=== PATIENT | female | born 1995 | race Hispanic/Latino ===

== ENCOUNTER 2023-08-13 12:37 | Emergency (ER) | payer SELFPAY ==
[2023-08-13] MEDS ORDERED: FAMOTIDINE 20 MG/2 ML VIAL IV ONE (12:58)
[2023-08-13] MEDS ORDERED: NA CHLORIDE 0.9% 1,000 ML ONE (12:58)
[2023-08-13] MEDS ORDERED: ONDANSETRON 4 MG/2 ML VIAL ONE (12:58)
[2023-08-13 13:05] LABS: Specific Gravity 1.008 (1.005-1.030)
[2023-08-13 13:06] LABS: Specific Gravity 1.008 (1.005-1.030); Urine Bilirubin NEGATIVE (Negative); Urine Blood Negative (Negative); Urine Clarity Clear (Clear); Urine Color Colorless (Yellow); Urine Glucose NEGATIVE (Negative); Urine Ketones NEGATIVE (Negative); Urine Microscopic Reflex YN NO UMIC; Urine Nitrite NEGATIVE (Negative); Urine Protein NEGATIVE (Negative); Urine Urobilinogen Normal (Normal); Urine pH 7.5 (5.0-7.0)
[2023-08-13 13:09] LABS: Absolute Eosinophils 0.1 K/uL (0-0.5); Absolute Lymphocytes (CBC) 2.3 K/uL (0.7-4.9); Absolute Monocytes 0.5 K/uL (0.1-1.3); Absolute Neutrophil 4.9 K/uL (1.8-8.0); Basophils % 0.4 % (0-1.3); Eosinophils % 1.2 % (0-4.4); Hematocrit 40.7 % (36.0-45.0); Hemoglobin 13.4 g/dL (12.0-15.0); Lymphocytes % 29.4 % (15.3-44.8); MCH 27.9 pg (27.0-35.0); MCV 84.7 fL (80-100); MPV 9.8 fL (7.6-11.3); Monocytes % 6.6 % (3.3-12.3); Neutrophils % 62.4 % (41.7-73.7); Platelets 274 thou/uL (152-406); RBC Red Blood Cell Count 4.81 M/uL (3.86-4.86); Red Cell Distribution Width 13.2 % (12.1-15.2)
[2023-08-13 13:18] LABS: Anion Gap 7.7 mEq/L (5.0-15.0); Bilirubin Total 0.6 mg/dL (0.2-1.0); Potassium 3.7 mEq/L (3.5-5.1)
[2023-08-13] MEDS ORDERED: MORPHINE 4 MG/ML SYR ONE (13:43)
--- NOTE | 2023-08-13 14:52 | RAD REPORT ---
EXAM DESCRIPTION: CT - Abdomen Pelvis W Contrast - 08/13/2023 2:22 pm CLINICAL HISTORY: ABD PAIN COMPARISON: No comparisons TECHNIQUE: Thin cut axial CT imaging of the abdomen and pelvis was performed following intravenous a dministration of Isovue 300. Multiplanar reformats were generated and reviewed. All CT scans are performed using dose optimization technique as appropriate and may include automated exposure control or mA/KV adjustment according to patient size. FINDINGS: No suspicious findings in the lung bases. The liver, spleen, adrenal glands, and pancreas show no suspicious findings. Gallbladder and biliary tree are also without suspicious finding. Symmetric renal function is seen with no hydronephrosis or suspicious renal mass. No dilated bowel loops or bowel wall thickening. Appendix is unremarkable. Ovoid well-marginated marjorie ection along the adventitia of a small bowel loop in the right lower quadrant, measuring 3.0 x 2.0 x 3.5 cm, with minimal adjacent fat stranding. No free air, free fluid or inflammatory stranding. No he rnia, mass or bulky lymphadenopathy. The urinary bladder is without significant finding. No suspicious bony findings. IMPRESSION: Ovoid well-marginated collection along the adventitia of a small bowel loop in the right lower quadrant, measuring up to 3.5 cm. This is nonspecific and may represent a small inclusion cyst or sequelae of an omental infarct. No other acute intra-abdominal process.
[2023-08-13] MEDS ORDERED: LIDOCAINE VISCOUS 2% 10ML ORAL SOLN ONE (15:28)
[2023-08-13] MEDS ORDERED: MAGNES/ALUMIN/SIMET 30ML UCUP ONE (15:28)
[2023-08-13] MEDS ORDERED: DICYCLOMINE HCL 20 MG/2 ML AMP IM ONE (15:30)
--- NOTE | 2023-08-13 15:44 | ER ---
Nurse's Notes [facility] Name: Julee Bunch Age: 28 yrs Sex: Female : 1995 Arrival Date: 08/13/2023 Time: 12:37 Bed 14 Private MD: Diagnosis: Upper abdominal pain, unspecified Presentation: 08/12 13:07 Chief complaint: Patient states: abdominal pain that started this morning. Coronavirus cp4 screen: Client denies travel out of the [place] in the last 14 days. At this time, the client does not indicate any symptoms associated with coronavirus-19. Ebola Screen: Patient negative for fever greater than or equal to 101.5 degrees Fahrenheit, and additional compatible Ebola Virus Disease symptoms Patient denies exposure to infectious person. Patient denies travel to an Ebola-affected area in the 21 days before illness onset. No symptoms or risks identified at this time. Initial Sepsis Screen: Does the patient meet any 2 criteria? No. Patient's initial sepsis screen is negative. Does the patient have a suspected source of infection? No. Patient's initial sepsis screen is negative. Risk Assessment: Do you want to hurt yourself or someone else? Patient reports no desire to harm self or others. Onset of symptoms was August 13, 2023. 13:07 Method Of Arrival: Ambulatory cp4 13:07 Acuity: OLGA 3 cp4 Triage Assessment: 13:09 General: Appears uncomfortable, Behavior is calm, cooperative, appropriate for age. cp4 Pain:. GI: Reports nausea, Pain is 8 out of 10 on a pain scale. 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 - Infectious Disease History:: Denies. CDIFF, C. Auris, ESBL, MRSA (w/in 1 year), VRE (w/in 1 year), TB, . - Social history:: Smoking status: Patient denies any tobacco usage or history of. Screenin:11 [facility] ED Fall Risk Assessment (Adult) History of falling in the last 3 months, cp4 including since admission No falls in past 3 months (0 pts) Confusion or Disorientation No (0 pts) Intoxicated or Sedated No (0 pts) Impaired Gait No (0 pts) Mobility Assist Device Used No (0 pt) Altered Elimination No (0 pt) Score/Fall Risk Level 0 - 2 = Low Risk Oriented to surroundings, Maintained a safe environment, Assessed \T\ reinforced patient's understanding of fall precautions, Hourly rounding (assess needs \T\ fall precautionary measures) done. Abuse screen: Denies threats or abuse. Nutritional screening: No deficits noted. Tuberculosis screening: No symptoms or risk factors identified. Assessment: 13:11 Reassessment: No changes from previously documented assessment. cp4 15:55 GI: Bowel sounds present X 4 quads. Abd is soft and non tender Abd is non tender X 4 cp4 quads. Vital Signs: 13:00 BP 125 / 86; Pulse 54; Resp 18; Pulse Ox 100% ; cp4 13:07 BP 125 / 86; Pulse 54; Resp 16; Pulse Ox 100% ; cp4 14:00 BP 124 / 78; Pulse 56; Resp 18; Pulse Ox 100% ; cp4 ED Course: 12:39 Patient arrived in ED. mr 12:40 Brittany Ana is Primary Nurse. cp4 12:41 Vero Quick FNP is PHCP. jh7 12:41 Forrest Foster MD is Attending Physician. jh7 12:56 CBC with Diff Sent. tl4 12:56 CMP Sent. tl4 12:56 Lipase Sent. tl4 12:57 Initial lab(s) drawn, by or, sent to lab. Urine collected: clean catch specimen, clear. [id number] Inserted saline lock: 20 gauge in right antecubital area, using aseptic technique. Blood collected. 13:09 Triage completed. cp4 13:09 Client placed on continuous cardiac and pulse oximetry monitoring. NIBP monitoring tl4 applied. Door closed. Noise minimized. Moved to private room. Warm blanket given. 13:09 Arm band placed on right wrist. Patient placed in an exam room, on a stretcher. cp4 13:11 No provider procedures requiring assistance completed. cp4 13:11 Bed in low position. Call light in reach. Side rails up X 1. cp4 14:23 CT Abd/Pelvis - IV Contrast Only In Process Unspecified. EDMS 15:42 Forrest Foster MD is Referral Physician. jh7 15:54 intact, bleeding controlled, No redness/swelling at site. Pressure dressing applied. cp4 15:54 Provided Education on: abdominal pain. cp4 Administered Medications: 13:08 Drug: NS 0.9% IV 1000 ml IV at 1 bolus Per protocol; 1000 mL bolus Route: IV; Rate: 1 tl4 bolus; Site: right antecubital; Delivery: Primary tubing; 14:02 Follow up: Response: No adverse reaction; IV Status: Infusion continued cp4 13:09 Drug: Famotidine IVP 20 mg IVP once; dilute with 10 mL 0.9% NaCl; give over 2 minutes tl4 Route: IVP; Infused Over: 2 mins; Site: right antecubital; 14:02 Follow up: Response: No adverse reaction cp4 13:09 Drug: Ondansetron IVP 4 mg IVP once; over 2 minutes Route: IVP; Infused Over: 2 mins; tl4 Site: right antecubital; 14:02 Follow up: Response: No adverse reaction cp4 13:49 Drug: morphine IVP or IV 4 mg IVP once over 4 mins Route: IVP; Infused Over: 4 mins; cp4 Site: right antecubital; 14:02 Follow up: Response: No adverse reaction cp4 15:34 Drug: GI Cocktail without - (Maalox PO 30 ml, Lidocaine Mucous Membrane 2 % 15 cp4 ml) PO once Route: PO; 15:54 Follow up: Response: No adverse reaction cp4 15:35 Drug: Dicyclomine IM 20 mg IM once Route: IM; Site: right ventrogluteal; cp4 15:54 Follow up: Response: No adverse reaction cp4 Medication: 13:11 VIS not applicable for this client. cp4 Outcome: 15:43 Discharge ordered by MD. walters 15:54 Discharged to home ambulatory, cp4 15:54 Condition: stable 15:54 Discharge instructions given to patient, Instructed on discharge instructions, follow up and referral plans. medication usage, Demonstrated understanding of instructions, follow-up care, medications, Prescriptions given X 2, 15:55 Patient left the ED. cp4 Signatures: Dispatcher [employer] EDMS Camryn Cosme, Jaziel Reg mr Tamara Quicknifer, CARBONATOR CARBONATOR Ana Martines cp4 Natalio Dupree RN RN tl4 Tremaine Vizcarra [email or web address]
--- NOTE | 2023-08-13 15:44 | EDPHYS ---
Physician Documentation [facility] Name: Julee Bunch Age: 28 yrs Sex: Female : 1995 Arrival Date: 08/13/2023 Time: 12:37 Bed 14 Private MD: ED Physician Forrest Foster HPI: 08/12 12:41 This 28 yrs old Female presents to ER via Unassigned with complaints of jh7 Abdominal Pain, Nausea. 12:41 The patient presents with abdominal pain in the epigastric area. Onset: The jh7 symptoms/episode began/occurred this morning. The symptoms do not radiate. Associated signs and symptoms: none. The symptoms are described as stabbing. 28-year-old female with no significant past medical history presents to the ER with epigastric pain and nausea since this morning. She denies constipation, diarrhea, urinary symptoms, and fever. She reports that she is not on her cycle but that they are irregular and sometimes she will not have one for years. No past surgeries.. 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 - Infectious Disease History:: Denies. CDIFF, C. Auris, ESBL, MRSA (w/in 1 year), VRE (w/in 1 year), TB, . - Social history:: Smoking status: Patient denies any tobacco usage or history of. ROS: 12:41 Constitutional: Negative for fever, chills, and weight loss, Neck: Negative for injury, jh7 pain, and swelling, Cardiovascular: Negative for chest pain, palpitations, and edema, Respiratory: Negative for shortness of breath, cough, wheezing, and pleuritic chest pain, Back: Negative for injury and pain, MS/Extremity: Negative for injury and deformity, Skin: Negative for injury, rash, and discoloration, Neuro: Negative for headache, weakness, numbness, tingling, and seizure, 12:41 Abdomen/GI: Positive for abdominal pain, nausea, Negative for vomiting, diarrhea, constipation, 12:41 All other systems are negative, Exam: 12:41 Constitutional: This is a well developed, well nourished patient who is awake, alert, jh7 and in no acute distress. Head/Face: Normocephalic, atraumatic. Eyes: Pupils equal round and reactive to light, extra-ocular motions intact. Lids and lashes normal. Conjunctiva and sclera are non-icteric and not injected. Cornea within normal limits. Periorbital areas with no swelling, redness, or edema. Neck: Trachea midline, no thyromegaly or masses palpated, and no cervical lymphadenopathy. Supple, full range of motion without nuchal rigidity, or vertebral point tenderness. No Meningismus. Cardiovascular: Regular rate and rhythm with a normal S1 and S2. No gallops, murmurs, or rubs. Normal PMI, no JVD. No pulse deficits. Respiratory: Lungs have equal breath sounds bilaterally, clear to auscultation and percussion. No rales, rhonchi or wheezes noted. No increased work of breathing, no retractions or nasal flaring. Back: No spinal tenderness. No costovertebral tenderness. Full range of motion. 12:41 Skin: Warm, dry with normal turgor. Normal color with no rashes, no lesions, and no evidence of cellulitis. MS/ Extremity: Pulses equal, no cyanosis. Neurovascular intact. Full, normal range of motion. Neuro: Awake and alert, GCS 15, oriented to person, place, time, and situation. Motor strength 5/5 in all extremities. Sensory grossly intact. Normal gait. 12:41 Abdomen/GI: Inspection: abdomen appears normal, Bowel sounds: normal, Palpation: soft, mild abdominal tenderness, in the epigastric area, Vital Signs: 13:00 BP 125 / 86; Pulse 54; Resp 18; Pulse Ox 100% ; cp4 13:07 BP 125 / 86; Pulse 54; Resp 16; Pulse Ox 100% ; cp4 14:00 BP 124 / 78; Pulse 56; Resp 18; Pulse Ox 100% ; cp4 MDM: 12:41 Patient medically screened. [facility] 13:37 ED course: Reassessed the patient. Pain still 8 out of 10 and epigastrium tender upon [facility] palpation. Agreed to order CT.. 15:40 Differential diagnosis: appendicitis, cholecystitis, Cholelithiasis, gastritis, jh7 gastroesophageal reflux disease, Irritable bowel syndrome, pancreatitis, Peritonitis. Data reviewed: vital signs, nurses notes, lab test result(s), radiologic studies, CT scan. I considered the following discharge prescriptions or medication management in the emergency department Medications were administered in the Emergency Department. See MAR. Historians other than the Patient: Parent: mom and dad. Counseling: I had a detailed discussion with the patient and/or guardian regarding the historical points, exam findings, and any diagnostic results supporting the discharge/admit diagnosis, to return to the emergency department if symptoms worsen or persist or if there are any questions or concerns that arise at home. Response to treatment: the patient's symptoms have mildly improved after treatment. 08/12 12:45 Order name: CBC with Diff; Complete Time: 13:21 [facility] 08/12 12:45 Order name: CMP; Complete Time: 13: [facility] 08/12 12:45 Order name: Lipase; Complete Time: 13: [facility] 08/12 12:45 Order name: Test, Urine; Complete Time: 13: [facility] 08/12 12:45 Order name: Urinalysis w/ reflexes; Complete Time: 13: [facility] 08/12 13:37 Order name: CT Abd/Pelvis - IV Contrast Only; Complete Time: 14:54 [facility] 08/12 12:45 Order name: IV Saline Lock; Complete Time: 12:56 [facility] 08/12 12:45 Order name: Labs collected and sent; Complete Time: 12:56 [facility] Administered Medications: 13:08 Drug: NS 0.9% IV 1000 ml IV at 1 bolus Per protocol; 1000 mL bolus Route: IV; Rate: 1 tl4 bolus; Site: right antecubital; Delivery: Primary tubing; 14:02 Follow up: Response: No adverse reaction; IV Status: Infusion continued cp4 13:09 Drug: Famotidine IVP 20 mg IVP once; dilute with 10 mL 0.9% NaCl; give over 2 minutes tl4 Route: IVP; Infused Over: 2 mins; Site: right antecubital; 14:02 Follow up: Response: No adverse reaction cp4 13:09 Drug: Ondansetron IVP 4 mg IVP once; over 2 minutes Route: IVP; Infused Over: 2 mins; tl4 Site: right antecubital; 14:02 Follow up: Response: No adverse reaction cp4 13:49 Drug: morphine IVP or IV 4 mg IVP once over 4 mins Route: IVP; Infused Over: 4 mins; cp4 Site: right antecubital; 14:02 Follow up: Response: No adverse reaction cp4 15:34 Drug: GI Cocktail without - (Maalox PO 30 ml, Lidocaine Mucous Membrane 2 % 15 cp4 ml) PO once Route: PO; 15:54 Follow up: Response: No adverse reaction cp4 15:35 Drug: Dicyclomine IM 20 mg IM once Route: IM; Site: right ventrogluteal; cp4 15:54 Follow up: Response: No adverse reaction cp4 Disposition: 17:49 Co-signature as Attending Physician, Forrest Foster MD I reviewed the patient's care rt provided by the Advanced Practice Provider and agree with the diagnosis and treatment plan. Disposition Summary: 08/13/23 15:43 Discharge Ordered Notes: Location: Home [facility] Problem: new [facility] Symptoms: have improved [facility] Condition: Stable [facility] Diagnosis - Upper abdominal pain, unspecified [facility] Followup: [facility] - With: Private Physician - When: 2 - 3 days - Reason: Recheck today's complaints Discharge Instructions: - Discharge Summary Sheet [facility] - Abdominal Pain, Adult [facility] Forms: - Medication Reconciliation Form [facility] - Thank You Letter [facility] - Patient Portal Instructions [facility] - Leadership Thank You Letter [facility] - Work release form 4 Prescriptions: - Pepcid 20 mg Oral Tablet - take 1 tablet ORAL route every 12 hours for 5 days; 10 tablet; Refills: 0, [facility] Product Selection Permitted - Levsin 0.125 mg Oral Tablet - take 1 tablet ORAL route every 8 hours; 30 tablet; Refills: 0, Product [facility] Selection Permitted Signatures: Dispatcher [employer] EDMS Vero Quick, DOCK SUPERINTENDENT DOCK SUPERINTENDENT [facility] Forrest Foster MD MD rt Ana Soto 4 Natalio Dupree, RN RN tl4 Corrections: (The following items were deleted from the chart) 12:45 12:45 CBC+H.LAB.BRZ ordered. EDMS EDMS 12:45 12:45 COMPREHENSIVE METABOLIC PANEL+C.LAB.BRZ ordered. EDMS EDMS 12:45 12:45 LIPASE+C.LAB.BRZ ordered. EDMS EDMS 12:45 12:45 Test, Urine+UC.LAB.BRZ ordered. EDMS EDMS 12:45 12:45 Urinalysis+U.LAB.BRZ ordered. EDMS EDMS
[2023-08-13 16:20] VITALS: BP 124/78; O2SAT 100
== END 2023-08-13 15:55 | disposition home or self-care (01) ==
LOC: ER 12:37
DX: R10.13 Epigastric pain (principal); R11.0 Nausea
CPT/HCPCS: 36415; 74177; 80053; 81003; 81025; 83690; 85025; 96361; 96372; 96374; 96375; 99284; J0500; J2405; J7030; Q9967